=== PATIENT | male | born 1955 | race Caucasian/White ===

== ENCOUNTER 2017-03-16 15:59 | Emergency (ER) | payer SELFPAY ==
[~2017-03-16] VITALS: Ht 177.8 cm; Wt 80.0 kg
[~2017-03-16 15:59] MED LIST: ATOR10TA60 PO; METO25TA4 PO
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
[2017-03-16 16:45] LABS: BASO % 0 % (0-3); EOS % 3 % (0-3); HEMATOCRIT 51.2 % (39.0-53.0); HEMOGLOBIN 17.3 g/dL (13.0-17.5); LYMPH # 1.8 x10^3/uL (1.0-4.8); LYMPH % 18 % (24-48); MEAN CORPUSCULAR HEMOGLOBIN 28 pg (25-35); MEAN CORPUSCULAR HGB CONC 34 g/dL (31-37); MEAN CORPUSCULAR VOLUME 84 fL (79-100); MONO % 8 % (0-9); NEUT % 71 % (31-73); PLATELET COUNT 228 x10^3/uL (140-400); RED BLOOD COUNT 6.09 x10^6/uL (4.30-5.70); RED CELL DISTRIBUTION WIDTH 13.5 % (11.5-14.5); WHITE BLOOD COUNT 9.8 x10^3/uL (4.0-11.0)
[2017-03-16 16:55] LABS: CALCIUM 9.2 mg/dL (8.5-10.1); CREATININE 0.9 mg/dL (0.7-1.3); GFR 85.5; POTASSIUM 4.2 mmol/L (3.5-5.1)
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
[2017-03-16 17:39] VITALS: BP 146/97
--- NOTE | 2017-03-16 17:40 | RAD ---
PROCEDURE CT head and cervical spine without contrast. HISTORY Headache, left-sided numbness for [address] imaging was performed of the head and cervical spine. Multiplanar reconstruction images are submitted. Exposure: One or more of the following individualized dose reduction techniques were utilized for this exam: 1. Automated exposure control. 2. Adjustment of the mA and/or kV according to patient size. 3. Use of iterative reconstruction technique. COMPARISON February 07, 2016 CT head exam also 12/05/2015 CTA neck exam FINDINGS Head: No acute intracranial hemorrhage is identified. There is no intra-axial mass effect, midline shift, extra-axial fluid collection. Ventricular size is stable. There is again old lacunar infarct of the right basal ganglia and gupta radiata. No acute calvarial abnormality is identified. Mastoid air cells are aerated. There is mild patchy ethmoid air cell and sphenoid sinus mucosal thickening. Cervical spine: There is advanced degenerative disc disease C5-C6 and C6-7 with spondylosis at the same levels. There is at least mild spinal stenosis on the order of 7-8 millimeters at C5-C6 and C6-7. There is facet and uncovertebral degenerative change at C5-C6 and C6-7 which results in severe narrowing of the left C5-C6 and bilateral C6-7 neural foramina, to a lesser degree on the right at C5-C6. There is emphysema of the visualized lung apices. There is nodularity of the right upper lobe of the lung as described for the soft tissue neck performed the same day. No acute cervical spine fracture is identified. There is adequate alignment lateral masses C1 relative to C2. Occipital condylar-C1 articulation is maintained. IMPRESSION 1. No acute intracranial abnormality is identified. There is again old lacunar infarct of the right basal ganglia and gupta radiata. 2. There is advanced degenerative disc disease C5-C6 and C6-7 with spondylosis at the same levels with at least mild spinal stenosis, also neural foramina compromise at these levels due to facet and uncovertebral degenerative change. 3. There is again noncalcified irregularity of the right upper lobe of the lung for which of 1 year follow-up is advised although if the lungs have not been evaluated in their entirety previously, PET CT evaluation may be beneficial. There is emphysema. Electronically signed by: Amarjit Paulino MD (March 16, 2017 17:38:25)
--- NOTE | 2017-03-17 07:27 | EKG ---
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
== END 2017-03-16 18:08 | disposition home or self-care (01) ==
LOC: ER 15:59
DX: R51 Headache (principal); J02.9 Acute pharyngitis, unspecified; R20.0 Anesthesia of skin; M10.9 Gout, unspecified; I10 Essential (primary) hypertension; G89.29 Other chronic pain; Z86.19 Personal history of other infectious and parasitic diseases; Z86.73 Personal history of transient ischemic attack (TIA), and cerebral infarction without residual deficits
CPT/HCPCS: 36415; 70450; 70490; 72125; 80048; 85027; 93005; 99285-25

== ENCOUNTER 2019-02-18 20:02 | Emergency (ER) | payer SELFPAY ==
[~2019-02-18] VITALS: Ht 177.8 cm; Wt 81.6 kg
[2019-02-18 20:54] VITALS: BP 136/75
--- NOTE | 2019-02-18 21:10 | PHYS DOC ---
Past Medical History Past Medical History: CVA, Hypertension, Hepatitis Additional Past Medical Histor: Gout, Cirrohis (Hepatitis C) Past Surgical History: No Surgical History, Tonsillectomy, Other Additional Past Surgical Histo: Deviated septum. Alcohol Use: None Drug Use: None Adult General Chief Complaint Chief Complaint: HYPERTENSION HPI HPI Patient is a 64 year old male who presents with complaining of elevated blood pressure. Patient states he ran out of his blood pressure medication metoprolol 25 mg twice a day for the last 2 days and just got his medication today. Patient states his blood pressure was 180s and he took 2 pills of his blood pressure this afternoon but decided to come to the hospital for evaluation. Patient complaining of headache before taking his blood pressure medication that after taking medication. Patient denies chest pain, shortness of breath, focal neuro deficit, nausea and vomiting, blurred vision. Review of Systems Review of Systems Constitutional: Denies fever or chills [] Eyes: Denies change in visual acuity, redness, or eye pain [] HENT: Denies nasal congestion or sore throat [] Respiratory: Denies cough or shortness of breath [] Cardiovascular: No additional information not addressed in HPI [] GI: Denies abdominal pain, nausea, vomiting, bloody stools or diarrhea [] : Denies dysuria or hematuria [] Musculoskeletal: Denies back pain or joint pain [] Integument: Denies rash or skin lesions [] Neurologic: Denies headache, focal weakness or sensory changes [] Endocrine: Denies polyuria or polydipsia [] All other systems were reviewed and found to be within normal limits, except as documented in this note. Allergies Allergies Allergies Coded Allergies Type Severity Reaction Last Updated Verified No Known Drug Allergies 06/22/14 No Physical Exam Physical Exam Constitutional: Well developed, well nourished, no acute distress, non-toxic appearance. [] HENT: Normocephalic, atraumatic Eyes: PERRLA, EOMI, conjunctiva normal, no discharge. [] Neck: Normal range of motion, no tenderness, supple, no stridor. [] Cardiovascular:Heart rate regular rhythm, no murmur [] Lungs & Thorax: Bilateral breath sounds clear to auscultation [] Abdomen: Bowel sounds normal, soft, no tenderness, no masses, no pulsatile masses. [] Skin: Warm, dry, no erythema, no rash. [] Back: No tenderness, no CVA tenderness. [] Extremities: No tenderness, no cyanosis, no clubbing, ROM intact, no edema. [] Neurologic: Alert and oriented X 3, normal motor function, normal sensory function, no focal deficits noted. [] Psychologic: Affect normal, judgement normal, mood normal. [] Current Patient Data Vital Signs Vital Signs Date Time Temp Pulse Resp B/P (MAP) Pulse Ox O2 Delivery O2 Flow Rate FiO2 02/18/19 20:54 66 20 98 02/18/19 20:14 97.7 166/90 (115) Room Air 97.7 EKG EKG EKG interpreted by me. EKG at 1920 showed normal sinus rhythm at rate of 64, normal NH and QT intervals, no acute distress and T-wave abnormalities. Radiology/Procedures Radiology/Procedures [] Course & Med Decision Making Course & Med Decision Making Evaluation of patient in ER showed 64-year-old male patient with elevation of blood pressure that improved after taking this medication. Patient had unremarkable physical exam and EKG and didn't want to have more tests. Blood pressure was 160 at arrival to ER that gradually decreased to 136/75 with heart rate of 64. Dragon Disclaimer Dragon Disclaimer This electronic medical record was generated, in whole or in part, using a voice recognition dictation system. Departure Departure Impression: Primary Impression: Uncontrolled hypertension Disposition: HOME, SELF-CARE (at 2106) Condition: IMPROVED Referrals: FEI ARVIZU MD (PCP) Patient Instructions: How to Take Your Blood Pressure, [id number], Hy pertension, Managing Your High Blood Pressure Additional Instructions: Continue blood pressure medication as instructed Follow-up with your primary care physician in 3-5 days Return to ER if not getting better SEMAJ ROSEN MD Feb 18, 2019 21:10
--- NOTE | 2019-02-21 07:49 | EKG ---
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
== END 2019-02-18 21:16 | disposition home or self-care (01) ==
LOC: ER 20:02
DX: I10 Essential (primary) hypertension (principal); Z86.73 Personal history of transient ischemic attack (TIA), and cerebral infarction without residual deficits; Z90.89 Acquired absence of other organs
CPT/HCPCS: 93005; 99281; 99283

== ENCOUNTER 2019-04-27 14:06 | Emergency (ER) | payer SELFPAY ==
[~2019-04-27] VITALS: Ht 177.8 cm; Wt 75.3 kg
--- NOTE | 2019-04-27 14:45 | PHYS DOC ---
Past Medical History Past Medical History: CVA, Hypertension, Hepatitis Additional Past Medical Histor: Gout, Cirrohis (Hepatitis C) Past Surgical History: No Surgical History, Tonsillectomy, Other Additional Past Surgical Histo: Deviated septum. Alcohol Use: None Drug Use: None Adult General Chief Complaint Chief Complaint: NEURO SYMPTOMS/DEFICITS [facility] Patient is a 64-year-old male with a past history of hypertension and hemorrhagic strokes, as well as other medical problems, who presents to the emergency department for evaluation. He states his blood pressure was checked at home by his girlfriend, and he was noted to be high. He is uncertain exactly how high it is, but his friend states he was over 200 systolic. The patient denies any symptoms at all, but the patient's friends thinks the patient's speech might be a little more deliberate today than it usually is. The patient denies any headache, vision changes, numbness, weakness, chest pain, short of breath. There are no alleviating, or exacerbating factors to his symptoms. Review of Systems Review of Systems Constitutional: Denies fever or chills [] Eyes: Denies change in visual acuity, redness, or eye pain [] HENT: Denies nasal congestion or sore throat [] Respiratory: Denies cough or shortness of breath [] Cardiovascular: No additional information not addressed in HPI [] GI: Denies abdominal pain, nausea, vomiting, bloody stools or diarrhea [] : Denies dysuria or hematuria [] Musculoskeletal: Denies back pain or joint pain [] Integument: Denies rash or skin lesions [] Neurologic: Denies headache, focal weakness or sensory changes [] Endocrine: Denies polyuria or polydipsia [] All other systems were reviewed and found to be within normal limits, except as documented in this note. Allergies Allergies Allergies Coded Allergies Type Severity Reaction Last Updated Verified No Known Drug Allergies 06/22/14 No Physical Exam Physical Exam PHYSICAL EXAM: CONSTITUTIONAL: Well developed, well nourished HEAD: normocephalic, atraumatic EENT: PERRL, EOMI. Conjunctivae normal color, sclerae non-icteric; moist mucous membranes. NECK: Supple, non-tender; no meningismus. LUNGS: Lungs CTA, breathing even and unlabored. Normal air movement. HEART: Regular rate and rhythm, no murmur CHEST: No deformity; non-tender ABDOMEN: The abdomen is soft, and non-tender, no masses or bruits. EXTREM: Normal ROM; no deformity, no calf tenderness. Normal pulses palpable in all extremities. There is no pedal edema. SKIN: No rash; no diaphoresis NEURO: Alert; normal cognition; the patient's speech is mildly delivered, but not slurred, without dysarthria or aphasia, CN's grossly intact; strength grossly intact without focal deficit. Visual cote are intact by confrontation. There is no cerebellar deficit. NIH stroke scale score is 0. BACK: No CVA TTP. EKG EKG Normal sinus rhythm with a normal rate, normal axis, normal intervals, there are no acute ischemic ST/T changes. There are nonspecific ST/T changes present. Radiology/Procedures Radiology/Procedures [] Course & Med Decision Making Course & Med Decision Making 2:40 PM: After initial evaluation, as well as blood pressure checking, the patient decides would like to leave the emergency department, AGAINST MEDICAL ADVICE. The clinical suspicion for acute stroke, either ischemic or hemorrhagic, is low, given the patient's history further evaluation is prudent, but the pat ient declined, expressing understanding that there is no definite inability to exclude potentially serious etiology of the patient's symptoms. The patient is competent and coherent to make such decisions, numbness of the risks involved and his decisions, no questions were answered. The importance of returning to the emergency department for new symptoms, as well as blood pressure monitoring was discussed. Dragon Disclaimer Dragon Disclaimer This electronic medical record was generated, in whole or in part, using a voice recognition dictation system. Departure Departure Impression: Primary Impression: Hypertension Disposition: 07 AGAINST MEDICAL ADVICE Condition: STABLE Referrals: FEI ARVIZU MD (PCP) Patient Instructions: Hypertension BJ MONTELONGO MD Apr 27, 2019 14:45
[2019-04-27 14:49] VITALS: BP 150/94
--- NOTE | 2019-04-27 15:08 | EKG ---
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
== END 2019-04-27 14:50 | disposition left against medical advice (07) ==
LOC: ER 14:06
DX: I10 Essential (primary) hypertension (principal); M10.9 Gout, unspecified; Z86.73 Personal history of transient ischemic attack (TIA), and cerebral infarction without residual deficits
CPT/HCPCS: 93005; 99283

== ENCOUNTER 2019-12-29 19:38 | Emergency (ER) | payer MEDICARE ==
[~2019-12-29] VITALS: Ht 177.8 cm; Wt 76.2 kg
[2019-12-29 19:40] VITALS: BP 148/78
--- NOTE | 2019-12-29 19:54 | PHYS DOC ---
Past Medical History Past Medical History: CVA, Hypertension, Hepatitis Additional Past Medical Histor: Gout, Cirrohis (Hepatitis C) Past Surgical History: No Surgical History, Tonsillectomy, Other Additional Past Surgical Histo: Deviated septum. Smoking Status: Current Every Day Smoker Alcohol Use: None Drug Use: None Adult General Chief Complaint Chief Complaint: ABSCESS HPI HPI Patient is a 64 year old male who presents with concern for an abscess on his right lower jaw region. The patient has had increased swelling and pain for 3 days. He has no fever or chills. Has been taking Naprosyn without relief. Pain is moderate and worse with movement. No drainage. No history of MRSA infections Review of Systems Review of Systems All other ROS is negative unless otherwise stated in HPI Current Medications Current Medications Current Medications Medications (Trade) Dose Ordered Sig/Harris Start Time Stop Time Status Last Admin Dose Admin Lidocaine/ Epinephrine (LIDOCAINE 1%-EPI 1:100,000 Multi-Dose) 5 ml 1X ONCE 12/29/19 20:00 12/29/19 20:01 DC Allergies Allergies Allergies Coded Allergies Type Severity Reaction Last Updated Verified No Known Drug Allergies 06/22/14 No Physical Exam Physical Exam Constitutional: Well developed, well nourished, no acute distress, non-toxic appearance. [] HENT: Normocephalic, atraumatic, bilateral external ears normal, oropharynx moist, no oral exudates, nose normal. There is a 3 cm right wrist Demeter area of swelling and induration consistent with abscess underneath of the right jawline. This area is firm. Eyes: PERRLA, EOMI, conjunctiva normal, no discharge. [] Neck: Normal range of motion, no tenderness, supple, no stridor. [] Cardiovascular:Heart rate regular rhythm, no murmur [] Lungs & Thorax: Bilateral breath sounds clear to auscultation [] Skin: Warm, dry, no erythema, no rash. Abscess beneath the right jaw as described under skin. Back: No tenderness, no CVA tenderness. [] Extremities: No tenderness, no cyanosis, no clubbing, ROM intact, no edema. [] Neurologic: Alert and oriented X 3, normal motor function, normal sensory function, no focal deficits noted. [] EKG EKG [] Radiology/Procedures Radiology/Procedures [] Course & Med Decision Making Course & Med Decision Making Pertinent Labs and Imaging studies reviewed. (See chart for details) 1952: Perform incision and drainage at bedside. Please see note for further details. Dragon Disclaimer Dragon Disclaimer This electronic medical record was generated, in whole or in part, using a voice recognition dictation system. Departure Departure Impression: Primary Impression: Abscess of chin Disposition: 01 HOME, SELF-CARE Condition: IMPROVED Referrals: FEI ARVIZU MD (PCP) Please follow up in 3-5 days for worsening symptoms and or reevaluation. Patient Instructions: Incision and Drainage, Care After Scripts Tramadol Hcl (TRAMADOL HCL) 50 Mg Tablet 50 MG PO TID PRN for PAIN for 3 Days, #9 TAB 0 Refills Prov: JAY JAY RUIZ DO 12/29/19 Sulfamethoxazole/Trimethoprim (BACTRIM DS TABLET) 1 Each Tablet 1 TAB PO BID for infection for 10 Days, #20 TAB Prov: JAY JAY RUIZ DO 12/29/19 Incision and Drainage Indication: abscess Procedure: The patient was positioned appropriately. Local anesthesia was 1% lidocaine with epinephrine, 2 mL. An incision was then made over the apex of the lesion and a moderate amount of purulence material was expressed. The drainage cavity explored with curved hemostat. Dressing was applied by nursing staff. Blood loss was minimal. Culture was obtained by nursing staff and sent for analysis. The patient tolerated the procedure well. Complications: none. JAY JAY RUIZ DO Dec 29, 2019 19:53
[2019-12-29] MEDS ORDERED: LIDOCAINE 1%/EPI 1:100,000 20 ML VIAL. INJ ONE (20:00)
[2019-12-29] MEDS ORDERED: TRAM50TA PO (20:12)
[2019-12-29] MEDS ORDERED: SULF1TAB24 PO (20:12)
[2019-12-29] MEDS ORDERED: DIPH,PERTUSS(ACELL),TET VAC/PF 0.5 ML SYRINGE. VAX IM ONE (20:15)
[2019-12-29] MEDS ORDERED: SMZ/TMP 800/160MG TABLET. PO ONE (20:15)
== END 2019-12-29 20:25 | disposition home or self-care (01) ==
LOC: ER 19:38
DX: L02.01 Cutaneous abscess of face (principal); I10 Essential (primary) hypertension; M10.9 Gout, unspecified; Z86.73 Personal history of transient ischemic attack (TIA), and cerebral infarction without residual deficits; F17.200 Nicotine dependence, unspecified, uncomplicated
CPT/HCPCS: 10060; 87071; 87075; 90471; 90715; 99283; J3490